=== PATIENT | female | born 1960 | race Caucasian/White ===

== ENCOUNTER 2016-08-20 11:13 | Emergency (ER) | payer MEDICAID ==
[~2016-08-20] VITALS: Ht 165.1 cm; Wt 63.0 kg
[2016-08-20 11:22] VITALS: BP 127/75
== END 2016-08-20 13:31 | disposition home or self-care (01) ==
LOC: ER 13:21
DX: R07.89 Other chest pain (principal); J18.9 Pneumonia, unspecified organism; W19.XXXA Unspecified fall, initial encounter
CPT/HCPCS: 71020; 99284